=== PATIENT | male | born 1960 | race Caucasian/White ===

== ENCOUNTER 2016-08-25 12:07 | Emergency (ER) | payer BC ==
[2016-08-25] MEDS ORDERED: METOCLOPRAMIDE HCL ORAL SOLN 10 MG/10 ML UDCUP PO ONE (13:21)
[2016-08-25] MEDS ORDERED: LIDOCAINE 2% VISCOUS SOLN 20 ML UDCUP PO ONE (13:21)
[2016-08-25] MEDS ORDERED: MAG HYDROX/AL HYDROX/SIMETH SUSP 30 ML UDCUP PO ONE (13:21)
--- NOTE | 2016-08-25 13:23 | ER Document Report ---
ED Medical Screen (RME) - General Chief Complaint: Chest Pain Stated Complaint: CHEST PAIN,SHORTNESS OF BREATH Time Seen by Provider: 08/25/16 13:21 Mode of Arrival: Ambulatory Information source: Patient TRAVEL OUTSIDE OF THE [place] IN LAST 30 DAYS: No - HPI Patient complains to provider of: chest pain/epigastric pain Onset: This morning Notes: 08/25/16 13:22 Patient is a 55-year-old male who presents to the emergency room complaining of chest pain but points to the epigastric region, reporting it is burning in nature, it started at 3:00 this morning, he took Prilosec at 5 AM without improvement of symptoms, reports diaphoresis as well as nausea - Related Data Allergies/Adverse Reactions: No Known Allergies Allergy (Unverified 08/25/16 12:22) Past Medical History Renal/ Medical History: Denies: Hx Peritoneal Dialysis Physical Exam - Vital signs Vitals: Temp Pulse Resp BP Pulse Ox 98.1 F 64 20 149/77 H 98 08/25/16 12:21 08/25/16 12:21 08/25/16 12:21 08/25/16 12:21 08/25/16 12:21 Course - Vital Signs Vital signs: Temp Pulse Resp BP Pulse Ox 98.1 F 64 20 149/77 H 98 08/25/16 12:21 08/25/16 12:21 08/25/16 12:21 08/25/16 12:21 08/25/16 12:21
--- NOTE | 2016-08-25 13:43 | RADIOLOGY REPORT (SQ) ---
EXAM DESCRIPTION: CHEST PA/LAT COMPLETED DATE/TIME: 08/25/2016 1:33 pm REASON FOR STUDY: cp COMPARISON: None. EXAM PARAMETERS: NUMBER OF VIEWS: two views TECHNIQUE: Digital Frontal and Lateral radiographic views of the chest acquired. RADIATION DOSE: NA LIMITATIONS: none FINDINGS: LUNGS AND PLEURA: There is diffuse bilateral interstitial airspace disease. No effusions. MEDIASTINUM AND HILAR STRUCTURES: No masses or contour abnormalities. HEART AND VASCULAR STRUCTURES: Heart is enlarged with central vascular prominence. BONES: No acute findings. HARDWARE: None in the chest. OTHER: No other significant finding. IMPRESSION: Findings are consistent with vascular congestion. TECHNICAL DOCUMENTATION: JOB ID: [id number] [employer]- All Rights Reserved
[2016-08-25 14:29] LABS: ABSOLUTE LYMPHOCYTES (AUTO) 0.9 10^3/uL (0.5-4.7); ABSOLUTE MONOCYTES (AUTO) 0.5 10^3/uL (0.1-1.4); ABSOLUTE NEUT (AUTO) 9.9 10^3/uL (1.7-8.2); BASOPHILS % (AUTO) 0.3 % (0-2); EOSINOPHILS % (AUTO) 0.2 % (0-6); HEMATOCRIT 49.7 % (37.9-51.0); HEMOGLOBIN 16.9 g/dL (13.5-17.0); LYMPHOCYTES % (AUTO) 7.6 % (13-45); MEAN CORPUSCULAR HEMOGLOBIN 32.5 pg (27.0-33.4); MEAN CORPUSCULAR VOLUME 96 fl (80-97); MONOCYTES % (AUTO) 4.2 % (3-13); RED BLOOD COUNT 5.19 10^6/uL (4.35-5.55); RED CELL DISTRIBUTION WIDTH 13.7 % (11.5-14.0); SEGMENTED NEUTROPHILS % (AUTO) 87.7 % (42-78); WHITE BLOOD COUNT 11.3 10^3/uL (4.0-10.5)
[2016-08-25 14:45] LABS: ALANINE AMINOTRANSFERASE 31 U/L (21-72); ALBUMIN 4.3 g/dL (3.5-5.0); ALKALINE PHOSPHATASE 107 U/L (38-126); ANION GAP 13 (5-19); ASPARTATE AMINO TRANSFERASE 18 U/L (17-59); BILIRUBIN,DIRECT 0.4 mg/dL (0.0-0.4); BILIRUBIN,TOTAL 0.6 mg/dL (0.2-1.3); BLOOD UREA NITROGEN 17 mg/dL (7-20); CALCIUM 9.7 mg/dL (8.4-10.2); CARBON DIOXIDE 23 mmol/L (22-30); CHLORIDE 105 mmol/L (98-107); CREATINE KINASE 90 U/L (55-170); CREATININE RESULT 1.02 mg/dL (0.52-1.25); GLUCOSE 121 mg/dL (75-110); LIPASE 197.8 U/L (23-300); SODIUM 141.4 mmol/L (137-145); TOTAL PROTEIN 7.5 g/dL (6.3-8.2)
[2016-08-25 14:57] LABS: CREATINE KINASE MB 0.95 ng/mL (<4.55)
[2016-08-25 14:58] LABS: TROPONIN I < 0.012 ng/mL
[2016-08-25] MEDS ORDERED: SUCRALFATE 1 GM TABLET PO ONE (15:18)
[2016-08-25] MEDS ORDERED: ONDANSETRON 4 MG TAB.RAPDIS PO ONE (15:18)
--- NOTE | 2016-08-25 15:19 | ER Document Report ---
ED GI/ - General Mode of Arrival: Ambulatory Information source: Patient TRAVEL OUTSIDE OF THE [place] IN LAST 30 DAYS: No - HPI Patient complains to provider of: Abdominal pain - epigastric Onset: This morning - 0500 Location: Epigastric Associated symptoms: Other - see notes above <TAMARA MALONE - Last Filed: 08/25/16 18:27> <SHERIFLORA ANN - Last Filed: 08/25/16 22:29> - General Chief Complaint: Chest Pain Stated Complaint: CHEST PAIN,SHORTNESS OF BREATH Time Seen by Provider: 08/25/16 15:10 Notes: 55 year old female with no prior medical problems presents to the ED complaining of epigastric "burning" abdominal pain which is exacerbated when eating that started at 0500 this morning. Patient reports that he took a Prilosec this morning which did not help. Patient states that his pain is improved since receiving the GI cocktail and while laying down, but there is still some burning to his abdomen. Patient is also complaining of shortness of breath associated with the pain, but denies chest pain, nausea, vomiting, or diarrhea. Patient drinks coffee and states that he had a cup at 0430 this morning. Patient denies use of ibuprofen or aspirin. (TAMARA MALONE) - Related Data Allergies/Adverse Reactions: No Known Allergies Allergy (Unverified 08/25/16 12:22) Past Medical History - General Information source: Patient - Social History Smoking Status: Current Every Day Smoker Frequency of alcohol use: Social Family History: Reviewed & Not Pertinent Patient has suicidal ideation: No Patient has homicidal ideation: No Renal/ Medical History: Denies: Hx Peritoneal Dialysis <TAMARA MALONE - Last Filed: 08/25/16 18:27> Review of Systems - Review of Systems Constitutional: No symptoms reported EENT: No symptoms reported Cardiovascular: No symptoms reported. denies: Chest pain Respiratory: See HPI, Short of breath - secondary to pain Gastrointestinal: See HPI, Abdominal pain. denies: Diarrhea, Nausea, Vomiting Genitourinary: No symptoms reported Male Genitourinary: No symptoms reported Musculoskeletal: No symptoms reported Skin: No symptoms reported Hematologic/Lymphatic: No symptoms reported Neurological/Psychological: No symptoms reported -: Yes All other systems reviewed and negative <TAMARA MALONE - Last Filed: 08/25/16 18:27> Physical Exam - General General appearance: Alert In distress: None - HEENT Head: Normocephalic, Atraumatic Eyes: Normal Extraocular movements intact: Yes Pupils: PERRL - Respiratory Respiratory status: No respiratory distress Breath sounds: Normal - Cardiovascular Rhythm: Regular Heart sounds: Normal auscultation - Abdominal Inspection: Normal Distension: No distension Tenderness: Tender - Mild LUQ tenderness to palpation - Back Back: Normal - Extremities General upper extremity: Normal inspection, Normal ROM General lower extremity: Normal inspection, Normal ROM - Neurological Neuro grossly intact: Yes Cognition: Normal Orientation: AAOx4 [place] Coma Scale Eye Opening: Spontaneous [place] Coma Scale Verbal: Oriented [place] Coma Scale Motor: Obeys Commands Wor[place] Coma Scale Total: 15 Speech: Normal - Psychological Associated symptoms: Normal affect, Normal mood - Skin Skin Temperature: Warm Skin Moisture: Dry Skin Color: Normal <TAMARA MALONE - Last Filed: 08/25/16 18:27> Course - Laboratory Result Diagrams: 08/25/16 13:52 08/25/16 13:52 <TAMARA MALONE - Last Filed: 08/25/16 18:27> - Laboratory Result Diagrams: 08/25/16 13:52 08/25/16 13:52 <LORA GORMAN - Last Filed: 08/25/16 22:29> - Re-evaluation Re-evalutation: 08/25/16 Patient is a 55-year-old male who comes in for burning in the left side of his stomach and also difficulty breathing. Patient feels much better after GI cocktail. Troponin negative 2. Chest x-ray concerning for CTA was done. Symptoms and CTA are consistent with pulmonary fibrosis. Patient was ambulated in the department and maintain his oxygen level at 99% with no distress. He will be discharged home is to follow-up with his doctor and probably pulmonology regarding this new diagnosis for him. Encouraged to stop smoking. Stable for discharge. (LORA GORMAN) - Vital Signs Vital signs: Temp Pulse Resp BP Pulse Ox 98.7 F 72 18 138/82 H 100 08/25/16 18:06 08/25/16 18:06 08/25/16 18:06 08/25/16 18:06 08/25/16 18:06 - Laboratory Laboratory results interpreted by me: 08/25/16 08/25/16 08/25/16 13:52 13:52 13:52 WBC 11.3 H Seg Neutrophils % 87.7 H Lymphocytes % 7.6 L Absolute Neutrophils 9.9 H Glucose 121 H TSH 4.98 H Discharge <TAMARA MALONE - Last Filed: 08/25/16 18:27> <LORA GORMAN - Last Filed: 08/25/16 22:29> - Discharge Clinical Impression: Pulmonary fibrosis Gastritis Qualifiers: Gastritis type: unspecified gastritis Chronicity: acute Gastritis bleeding: presence of bleeding unspecified Qualified Code(s): K29.00 - Acute gastritis without bleeding Condition: Stable Disposition: HOME, SELF-CARE Instructions: Gastritis ([facility]), Ulcer ([facility]) Additional Instructions: Your CT is concerning for pulmonary fibrosis. Please stop smoking and follow- up with a educational technologist. Prescriptions: Ondansetron [Zofran Odt 4 mg Tablet] 4 mg PO Q4HP PRN #30 tab.rapdis PRN Reason: Famotidine 40 mg PO BID #30 tablet Sucralfate [Carafate 1 gm Tablet] 1 gm PO ACHS #120 tablet Forms: Return to Work Referrals: HAI ROBERT MD [ACTIVE STAFF] - Follow up as needed Scribe Attestation: 08/25/16 22:29 I personally performed the services described in the documentation, reviewed and edited the documentation which was dictated to the scribe in my presence, and it accurately records my words and actions. (LORA GORMAN) Scribe Documentation - Scribe Written by Fahad:: Fahad Villa, 08/25/2016 1839 acting as scribe for :: Sherif <TAMARA MALONE - Last Filed: 08/25/16 18:27>
--- NOTE | 2016-08-25 16:45 | RADIOLOGY REPORT (SQ) ---
EXAM DESCRIPTION: CTA CHEST COMPLETED DATE/TIME: 08/25/2016 4:27 pm REASON FOR STUDY: CP, SOB COMPARISON: Two-view chest 08/25/2016 TECHNIQUE: CT scan of the chest performed using helical scanning technique with dynamic intravenous contrast injection. Images reviewed with lung, soft tissue and bone windows. Reconstructed coronal and sagittal MPR images reviewed. Additional 3 dimensional post-processing performed to develop Maximal Intensity Projection images ([place] P). All images stored on PACS. All CT scanners at this facility use dose modulation, iterative reconstruction, and/or weight based d osing when appropriate to reduce radiation dose to as low as reasonably achievable (ALARA). [facility]: Dose Right [facility]: CareDose [facility]: Dose Right [facility]: Teradose 4D [facility]: [employer] CONTRAST TYPE AND DOSE: contrast/concentration: Isovue 370.00 mg/ml; Total Contrast Delivered: 80.0 ml; Total Saline Delivered: 90.0 ml RENAL FUNCTION: Creatinine 1.02 RADIATION DOSE: Up-to-date CT equipment and radiation dose reduction techniques were employed. CTDIv ol: 23.6 - 41.3 mGy. DLP: 905 mGy-cm. . LIMITATIONS: None. FINDINGS: LUNGS AND PLEURA: Increased interstitial markings are present around the periphery of both lungs worrisome for pulmonary fibrosis. Acute interstitial edema or pneumonitis could not entirely be excluded. No dense lobar consolidation worrisome for pneumonia. No pleural effusion. No pneumothorax. AORTA AND GREAT VESSELS: No aneurysm or dissection. HEART: No pericardial effusion. PULMONARY ARTERIES: No emboli visualized in the main pulmonary arteries or the segmental branches. HILAR AND MEDIASTINAL STRUCTURES: No identified masses or abnormal nodes. HARDWARE: None in the chest. UPPER ABDOMEN: No significant findings. Limited exam. THYROID AND OTHER SOFT TISSUES: No masses. No adenopathy. BONES: No acute or significant finding. 3D MIPS: Confirm above findings. OTHER: No other significant finding. IMPRESSION: No CT angio evidence of acute pulmonary emboli. No thoracic aortic dissection. Pulmonary fibrosis. Acute interstitial edema or pneumonitis could not be excluded. TECHNICAL DOCUMENTATION: JOB ID: [id number] Quality ID # [id number]: Final reports with documentation of one or more dose reduction techniques (e.g., Au tomated exposure control, adjustment of the mA and/or kV according to patient size, use of iterative reconstruction technique) 2010 [employer]- All Rights Reserved
[2016-08-25 18:07] VITALS: BP 138/82
--- NOTE | 2016-08-25 18:56 | EKG REPORT ---
SEVERITY:- BORDERLINE ECG - SINUS RHYTHM BORDERLINE T ABNORMALITIES, INFERIOR LEADS : Confirmed by: Ronny Allan 25-Aug-2016 18:55:37
== END 2016-08-25 18:28 | disposition home or self-care (01) ==
LOC: ER 12:07
DX: K29.00 Acute gastritis without bleeding (principal); J84.10 Pulmonary fibrosis, unspecified; R10.13 Epigastric pain; R06.02 Shortness of breath; F17.200 Nicotine dependence, unspecified, uncomplicated; R10.812 Left upper quadrant abdominal tenderness
CPT/HCPCS: 93005; 99285; 36415; 82553; 82550; 83690; 84443; 85025; 80053; 84484; 83880; 71020; 71275; 93010; S0119; J3490